=== PATIENT | male | born 1970 | race Caucasian/White ===

== ENCOUNTER 2017-01-27 21:33 | Emergency (ER) | payer SELFPAY ==
[~2017-01-27] VITALS: Ht 180.3 cm; Wt 118.4 kg
[~2017-01-27 21:33] MED LIST: HYDR-3533 PO
[2017-01-27 21:58] VITALS: BP 142/93; PULSE 94; RESP 20; TEMP 98.2; O2SAT 96
[2017-01-28 00:15] VITALS: BP 185/89; PULSE 85; RESP 20; TEMP 97.5; O2SAT 99
[2017-01-28] MEDS ORDERED: RESP: ALBUTEROL 2.5 MG/3 ML NEB (SCH) NEB ONE (00:45)
--- NOTE | 2017-01-28 01:08 | RADHPO ---
EXAM DATE/TIME: 01/28/2017 00:53 [facility] COMPARISON: No previous studies available for comparison. INDICATIONS : Cough and congestion. MEDICAL HISTORY : ASthma. SURGICAL HISTORY : None. ENCOUNTER: Initial ACUITY: 1 month PAIN SCORE: 0/10 LOCATION: chest FINDINGS: PA and lateral views of the chest demonstrate the lungs to be symmetrically aerated without evidence of mass, infiltrate or effusion. The cardiomediastinal contours are unremarkable. Osseous structure s are intact. CONCLUSION: Normal examination. Jude Juarez Jr., MD on January 28, 2017 at 1:06 Board Certified Radiologist. This report was verified electronically.
[2017-01-28 01:13] LABS: AUTOMATED NEUTROPHIL # 4.4 TH/MM3 (1.8-7.7); BASOPHIL % 0.5 % (0.0-2.0); EOSINOPHIL # 0.1 TH/MM3 (0-0.4); EOSINOPHIL % 2.1 % (0.0-4.0); HEMATOCRIT 51.2 % (39.0-51.0); HEMO FLAGS DIFF FINAL; LYMPHOCYTE # 1.5 TH/MM3 (1.0-4.8); MEAN CELL VOLUME 85.6 FL (80.0-100.0); MEAN CORPUSCULAR HEMOGLOBIN 28.4 PG (27.0-34.0); MEAN CORPUSCULAR HGB CONC 33.2 % (32.0-36.0); NEUT % 66.4 % (16.0-70.0); PLATELET COUNT 170 TH/MM3 (150-450); RED BLOOD COUNT 5.98 MIL/MM3 (4.50-5.90); RED CELL DISTRIBUTION WIDTH 12.2 % (11.6-17.2); WHITE BLOOD COUNT 6.6 TH/MM3 (4.0-11.0)
[2017-01-28 01:22] LABS: CHLORIDE 103 MEQ/L (98-107); SODIUM (NA) 138 MEQ/L (136-145)
[2017-01-28 01:25] LABS: ANION GAP 9 MEQ/L (5-15); BICARBONATE 25.8 MEQ/L (21.0-32.0); BLOOD UREA NITROGEN 11 MG/DL (7-18)
[2017-01-28 01:29] LABS: GLOMERULAR FILTRATION RATE 65 ML/MIN (>89)
[2017-01-28 01:30] VITALS: BP 140/92; PULSE 85; RESP 18; O2SAT 99
[2017-01-28 02:30] VITALS: BP 156/81; PULSE 86; RESP 18; O2SAT 97
[2017-01-28] MEDS ORDERED: AMLO5 PO (02:41)
[2017-01-28] MEDS ORDERED: MEDR4PAK PO (02:41)
[2017-01-28] MEDS ORDERED: ALBU6.7H INH (02:41)
[2017-01-28] MEDS ORDERED: methylPREDNISolone SOD SUCC 125 MG/2 ML VIAL IV PUSH ONE (02:45)
--- NOTE | 2017-01-28 02:47 | PD ---
HPI Chief Complaint: Cold / Flu Symptoms Time Seen by Provider: 00:44 Travel History International Travel<30 days: No Contact w/Intl Traveler<30days: No Traveled to known affect area: No History of Present Illness HPI 46-year-old male presents to the emergency department for complaint of cough. Patient has had similar symptoms intermittently over the past year but symptoms haven't increased over the past one month. Patient is concerned that he may have allergies. Patient states that he has high blood pressure but is currently not on blood pressure medication. Patient doesn't really have discomfort in his chest with coughing otherwise no chest pain or discomfort. Remote history of asthma. No recent febrile illness. No other family members with similar symptoms. Son had been ill with recent reactive airways disease. Patient denies tobacco use. Has been taking friend's blood pressure medication. No pleuritic pain no orthopnea and no PND or lower extremity pain or swelling. PFSH Past Medical History Narrative Medical Headaches knee pain leg surgery no tobacco use Hypertension dyslipidemia TIA arthritis asthma; occasional alcohol use; nursing notes reviewed Arthritis: Yes Asthma: Yes Heart Rhythm Problems: No Cancer: No Cardiovascular Problems: Yes (htn takes no meds) High Cholesterol: Yes Chest Pain: Yes Congestive Heart Failure: No Cerebrovascular Accident: Yes (TIA) Diminished Hearing: No Endocrine: No Genitourinary: No Headaches: Yes Hypertension: Yes Immune Disorder: No Implanted Vascular Access Dvce: Yes Musculoskeletal: Yes (chronic right knee pain.) Neurologic: No Psychiatric: No Reproductive: No Respiratory: No Immunizations Current: No Past Surgical History Abdominal Surgery: No Body Medical Devices: steel fariba in left leg. Cardiac Surgery: No Ear Surgery: No Endocrine Surgery: No Eye Surgery: No Genitourinary Surgery: No Gynecologic Surgery: No Oral Surgery: No Thoracic Surgery: No Other Surgery: Yes Social History Alcohol Use: Yes (SOCIAL) Tobacco Use: No Substance Use: No Allergies-Medications (Allergen,Severity, Reaction): Coded Allergies: No Known Allergies (Unverified , 01/28/17) Reported Meds & Prescriptions Reported Meds & Active Scripts Active Norvasc (Amlodipine Besylate) 5 Mg Tab 5 Mg PO DAILY Proventil Hfa 6.7 GM Inh (Albuterol Sulfate) 90 Mcg/Act Aer 2 Puff INH Q4-6H PRN Medrol Dosepak (Methylprednisolone) 4 Mg Dspk 4 Mg PO DIRECTED Per Pharmacist direction Review of Systems Except as stated in HPI: all other systems reviewed are Neg General / Constitutional: No: Fever, Chills HENT: Positive: Congestion Cardiovascular: Positive: Chest Pain or Discomfort, No: Palpitations, Diaphoresis Respiratory: Positive: Cough, Shortness of Breath, Wheezing, No: Orthopnea, Hemoptysis, Stridor, Pleuritic Pain Gastrointestinal: No: Nausea, Vomiting, Abdominal Pain Genitourinary: No: Urgency, Dysuria Musculoskeletal: No: Weakness, Edema Skin: No Rash Neurologic: No: Weakness Psychiatric: No: Anxiety Endocrine: No: Heat Intolerance Hematologic/Lymphatic: No: Easy Bruising Physical Exam Narrative GENERAL: Well-developed well-nourished male in no acute distress no respiratory distress. Intermittently dry nonproductive cough SKIN: Warm and dry. HEAD: Normocephalic. EYES: No scleral icterus. No injection or drainage. NECK: Supple, trachea midline. No JVD or lymphadenopathy. CARDIOVASCULAR: Regular rate and rhythm without murmurs, gallops, or rubs. RESPIRATORY: Breath sounds equal bilaterally. No accessory muscle use. GASTROINTESTINAL: Abdomen soft, non-tender, nondistended. MUSCULOSKELETAL: No cyanosis, or edema. BACK: Nontender without obvious deformity. No CVA tenderness. Data Data Last Documented VS Vital Signs Date Time Temp Pulse Resp B/P Pulse Ox O2 Delivery O2 Flow Rate FiO2 01/28/17 03:26 90 18 166/92 97 01/28/17 02:30 Room Air 01/28/17 00:15 97.5 Orders Chest, Pa & Lat (01/28/17 ) Complete Blood Count With Diff (01/28/17 00:44) Basic Metabolic Panel (Bmp) (01/28/17 00:44) Troponin I (01/28/17 00:44) B-Type Natriuretic Peptide (01/28/17 00:44) Electrocardiogram (01/28/17 ) Albuterol Neb (Albuterol Neb) (01/28/17 00:45) Methylprednisolone So Succ Inj (Solumedr (01/28/17 02:45) Labs Laboratory Tests Test 01/28/17 00:10 White Blood Count 6.6 TH/MM3 Red Blood Count 5.98 MIL/MM3 Hemoglobin 17.0 GM/DL Hematocrit 51.2 % Mean Corpuscular Volume 85.6 FL Mean Corpuscular Hemoglobin 28.4 PG Mean Corpuscular Hemoglobin 33.2 % Concent Red Cell Distribution Width 12.2 % Platelet Count 170 TH/MM3 Mean Platelet Volume 8.6 FL Neutrophils (%) (Auto) 66.4 % Lymphocytes (%) (Auto) 22.0 % Monocytes (%) (Auto) 9.0 % Eosinophils (%) (Auto) 2.1 % Basophils (%) (Auto) 0.5 % Neutrophils # (Auto) 4.4 TH/MM3 Lymphocytes # (Auto) 1.5 TH/MM3 Monocytes # (Auto) 0.6 TH/MM3 Eosinophils # (Auto) 0.1 TH/MM3 Basophils # (Auto) 0.0 TH/MM3 CBC Comment DIFF FINAL Differential Comment Sodium Level 138 MEQ/L Potassium Level 4.0 MEQ/L Chloride Level 103 MEQ/L Carbon Dioxide Level 25.8 MEQ/L Anion Gap 9 MEQ/L Blood Urea Nitrogen 11 MG/DL Creatinine 1.20 MG/DL Estimat Glomerular Filtration 65 ML/MIN Rate Random Glucose 101 MG/DL Calcium Level 8.7 MG/DL Troponin I LESS THAN 0.02 NG/ML B-Type Natriuretic Peptide 5 PG/ML MDM Medical Decision Making Medical Screen Exam Complete: Yes Emergency Medical Condition: Yes Medical Record Reviewed: Yes Interpretation(s) Last Impressions Chest X-Ray 01/28/17 0000 Signed Impressions: Service Date/Time: January 00:53 - CONCLUSION: Normal examination. Jude Juarez Jr., MD CBC & BMP Diagram 01/28/17 00:10 Vital Signs Date Time Temp Pulse Resp B/P Pulse Ox O2 Delivery O2 Flow Rate FiO2 01/28/17 00:15 97.5 85 20 185/89 99 01/27/17 21:58 98.2 94 20 142/93 96 Differential Diagnosis Bronchitis, asthma, pneumonia, reactive airways disease, seasonal/environmental allergies, sinusitis, atypical chest pain, ACS, CHF Narrative Course IV access obtained specimens collected and sent for resulting chest x-ray reveals no lobar infiltrate patient given albuterol updraft within proven of spastic cough symptoms; blood pressure improved; EKG shows sinus rhythm with no acute ST elevation or injury pattern change and cardiac enzymes are normal range. Patient feels clinically improved. Patient is stable for outpatient management and follow-up with primary care provider Diagnosis Primary Impression: Cough Additional Impression: Hypertension Referrals: Primary Care Physician call for appointment Patient Instructions: General Instructions Additional Instructions: Use medications as prescribed May use [id number] Flonase per package directions May use [id number] Claritin per package directions Follow-up with primary care provider Return to the emergency department for any concerns or change in condition Increase fluid hydration Med/Other Pt SpecificInfo: Prescription(s) given Scripts Amlodipine (Norvasc)5 Mg Tab5 Mg PO DAILY #30 TAB Ref 0 Prov:Estelle Cheung MD 01/28/17 Albuterol 6.7 GM Inh (Proventil Hfa 6.7 GM Inh)90 Mcg/Act Aer2 Puff INH Q4-6H PRN (SHORTNESS OF BREATH) #1 INHALER Ref 0 Prov:Estelle Cheung MD 01/28/17 Methylprednisolone Dosepak (Medrol Dosepak)4 Mg Dspk4 Mg PO DIRECTED #1 DSPK Ref 0 Per Pharmacist direction Prov:Estelle Cheung MD 01/28/17 Disposition: 01 DISCHARGE HOME Condition: Stable Estelle Cheung MD Jan 28, 2017 02:47
[2017-01-28 03:26] VITALS: BP 166/92
--- NOTE | 2017-01-28 12:49 | EKG ---
Date Performed: 01/28/2017 Time Performed: 01:34:36 PTAGE: 46 years EKG: Sinus rhythm . Normal ECG PREVIOUS TRACING : 09/04/2015 23.17 Compared to prior tracing no significant change DOCTOR: Jean-Claude Gillette Interpretating Date/Time 01/28/2017 12:48:21
== END 2017-01-28 03:29 | disposition home or self-care (01) ==
LOC: PHED 21:33
DX: R05 Cough (principal); I10 Essential (primary) hypertension; J45.909 Unspecified asthma, uncomplicated
CPT/HCPCS: 71020; 80048; 83880; 84484; 85025; 93005; 94664; 96374; 99284; J2930; J7613

== ENCOUNTER 2018-02-01 12:41 | Emergency (ER) | payer MEDICARE ==
[~2018-02-01] VITALS: Ht 180.3 cm; Wt 115.7 kg
[~2018-02-01 12:41] MED LIST changes: +ALBU6.7H INH; +AMLO5 PO; -HYDR-3533 PO; +MEDR4PAK PO
[2018-02-01 12:42] VITALS: BP 243/123; PULSE 87; RESP 18; O2SAT 97
[2018-02-01] MEDS ORDERED: SODIUM CHLORIDE 0.9% FLUSH 10 ML FLUSH IVF PRN (13:00)
[2018-02-01 13:01] VITALS: BP 144/77; PULSE 80; RESP 16; O2SAT 96
[2018-02-01 13:04] VITALS: RESP 16; O2SAT 96
[2018-02-01 13:15] LABS: AUTOMATED NEUTROPHIL # 4.4 TH/MM3 (1.8-7.7); BASOPHIL # 0.1 TH/MM3 (0-0.2); EOSINOPHIL # 0.3 TH/MM3 (0-0.4); HEMATOCRIT 45.8 % (39.0-51.0); HEMOGLOBIN 15.3 GM/DL (13.0-17.0); LYMPH % 32.6 % (9.0-44.0); LYMPHOCYTE # 2.5 TH/MM3 (1.0-4.8); MEAN CORPUSCULAR HEMOGLOBIN 28.7 PG (27.0-34.0); MEAN CORPUSCULAR HGB CONC 33.4 % (32.0-36.0); MEAN PLATELET VOLUME 8.5 FL (7.0-11.0); MONO % 6.9 % (0.0-8.0); MONOCYTE # 0.5 TH/MM3 (0-0.9); NEUT % 55.5 % (16.0-70.0); PLATELET COUNT 184 TH/MM3 (150-450); RED BLOOD COUNT 5.32 MIL/MM3 (4.50-5.90); RED CELL DISTRIBUTION WIDTH 11.9 % (11.6-17.2); WHITE BLOOD COUNT 7.8 TH/MM3 (4.0-11.0)
[2018-02-01 13:23] LABS: CHLORIDE 105 MEQ/L (98-107); SODIUM (NA) 138 MEQ/L (136-145)
[2018-02-01 13:26] LABS: CALCIUM 8.4 MG/DL (8.5-10.1); PROTHROMBIN TIME - PATIENT 10.2 SEC (9.8-11.6)
[2018-02-01 13:27] LABS: BLOOD UREA NITROGEN 14 MG/DL (7-18); GLUCOSE,RANDOM 118 MG/DL (74-106)
[2018-02-01 13:30] LABS: GLOMERULAR FILTRATION RATE 59 ML/MIN (>89)
[2018-02-01 13:35] LABS: TROPONIN I LESS THAN 0.02 NG/ML (0.02-0.05)
--- NOTE | 2018-02-01 13:38 | PD ---
HPI Chief Complaint: Neuro Symptoms/ Deficits Time Seen by Provider: 12:50 Travel History International Travel<30 days: No Contact w/Intl Traveler<30days: No Traveled to known affect area: No History of Present Illness HPI 47-year-old male complains of expressive aphasia last night which resolved at about the time he went to sleep. He also had numbness in his tongue and perioral numbness as well as bilateral upper extremity paresthesias though worse on the right. He denies symptoms today aside from a pressure-like headache. He reports a history of hypertension including medications for it however does not take any currently due to no follow-up. He reports quite a bit of personal stress lately. He denies drug or alcohol abuse. PFS Past Medical History Arthritis: Yes Asthma: Yes Heart Rhythm Problems: No Cancer: No Cardiovascular Problems: Yes (htn takes no meds) High Cholesterol: Yes Chest Pain: Yes Congestive Heart Failure: No Cerebrovascular Accident: Yes (TIA) Diabetes: No Diminished Hearing: No Endocrine: No Gastrointestinal Disorders: No Genitourinary: No Headaches: Yes Hypertension: Yes Immune Disorder: No Implanted Vascular Access Dvce: Yes Musculoskeletal: Yes (chronic right knee pain.) Neurologic: No Psychiatric: No Reproductive: No Respiratory: No Immunizations Current: No Tetanus Vaccination: < 5 Years ?: Not Past Surgical History Abdominal Surgery: No Body Medical Devices: steel fariba in left leg. Cardiac Surgery: No Ear Surgery: No Endocrine Surgery: No Eye Surgery: No Genitourinary Surgery: No Gynecologic Surgery: No Neurologic Surgery: No Oral Surgery: No Thoracic Surgery: No Other Surgery: Yes (Back surgery) Social History Alcohol Use: No Tobacco Use: No Substance Use: No Allergies-Medications (Allergen,Severity, Reaction): Coded Allergies: No Known Allergies (Unverified Adverse Reaction, Unknown, 02/01/18) Reported Meds & Prescriptions Reported Meds & Active Scripts Active No Active Prescriptions or Reported Medications Review of Systems Except as stated in HPI: all other systems reviewed are Neg General / Constitutional: No: Fever Eyes: No: Blurred Vision Physical Exam Narrative GENERAL: 47-year-old male pleasant well-nourished well-developed Vital Signs Date Time Temp Pulse Resp B/P (MAP) Pulse Ox O2 Delivery O2 Flow Rate FiO2 02/01/18 13:04 16 96 Room Air 02/01/18 13:01 80 16 144/77 (99) 96 Room Air 02/01/18 12:58 16 96 Room Air 02/01/18 12:42 87 18 243/123 (163) 97 SKIN: Warm and dry. HEAD: Atraumatic. Normocephalic. EYES: Pupils equal and round. No scleral icterus. No injection or drainage. ENT: No nasal bleeding or discharge. Mucous membranes pink and moist. NECK: Trachea midline. No JVD. CARDIOVASCULAR: Regular rate and rhythm. RESPIRATORY: No accessory muscle use. Clear to auscultation. Breath sounds equal bilaterally. GASTROINTESTINAL: Abdomen soft, non-tender, nondistended. Hepatic and splenic margins not palpable. MUSCULOSKELETAL: Extremities without clubbing, cyanosis, or edema. No obvious deformities. NEUROLOGICAL: Awake and alert. No obvious cranial nerve deficits. Motor grossly within normal limits. Five out of 5 muscle strength in the arms and legs. Normal speech. PSYCHIATRIC: Appropriate mood and affect; insight and judgment normal. Data Data Last Documented VS Vital Signs Date Time Temp Pulse Resp B/P (MAP) Pulse Ox O2 Delivery O2 Flow Rate FiO2 02/01/18 13:04 16 96 Room Air 02/01/18 13:01 80 Orders Orders Electrocardiogram (02/01/18 13:00) Prothrombin Time / Inr (Pt) (02/01/18 13:00) Act Partial Throm Time (Ptt) (02/01/18 13:00) Complete Blood Count With Diff (02/01/18 13:00) Basic Metabolic Panel (Bmp) (02/01/18 13:00) Drug Screen, Random Urine (02/01/18 13:00) Troponin I (02/01/18 13:00) Ct Brain W/O Iv Contrast(Rout) (02/01/18 13:00) Ecg Monitoring (02/01/18 13:00) Iv Access Insert/Monitor (02/01/18 13:00) Oximetry (02/01/18 13:00) Sodium Chloride 0.9% Flush (Ns Flush) (02/01/18 13:00) Labs Laboratory Tests Test 02/01/18 13:00 White Blood Count 7.8 TH/MM3 Red Blood Count 5.32 MIL/MM3 Hemoglobin 15.3 GM/DL Hematocrit 45.8 % Mean Corpuscular Volume 86.0 FL Mean Corpuscular Hemoglobin 28.7 PG Mean Corpuscular Hemoglobin Concent 33.4 % Red Cell Distribution Width 11.9 % Platelet Count 184 TH/MM3 Mean Platelet Volume 8.5 FL Neutrophils (%) (Auto) 55.5 % Lymphocytes (%) (Auto) 32.6 % Monocytes (%) (Auto) 6.9 % Eosinophils (%) (Auto) 4.0 % Basophils (%) (Auto) 1.0 % Neutrophils # (Auto) 4.4 TH/MM3 Lymphocytes # (Auto) 2.5 TH/MM3 Monocytes # (Auto) 0.5 TH/MM3 Eosinophils # (Auto) 0.3 TH/MM3 Basophils # (Auto) 0.1 TH/MM3 CBC Comment DIFF FINAL Differential Comment Prothrombin Time 10.2 SEC Prothromb Time International Ratio 1.0 RATIO Activated Partial Thromboplast Time 24.7 SEC Blood Urea Nitrogen 14 MG/DL Creatinine 1.30 MG/DL Random Glucose 118 MG/DL Calcium Level 8.4 MG/DL Sodium Level 138 MEQ/L Potassium Level 3.8 MEQ/L Chloride Level 105 MEQ/L Carbon Dioxide Level 23.0 MEQ/L Anion Gap 10 MEQ/L Estimat Glomerular Filtration Rate 59 ML/MIN Troponin I LESS THAN 0.02 NG/ML MDM Medical Decision Making Medical Screen Exam Complete: Yes Emergency Medical Condition: Yes Medical Record Reviewed: Yes Differential Diagnosis stroke, TIA, hypertension Narrative Course EKG: sinus, rate 80, normal axis/intervals, q waves in v1/v2 CBC & BMP Diagram 02/01/18 13:00 Calcium Level 8.[address]: normal blood pressure has normalized to about 144/77. The presentation is concerning for a TIA. The patient refuses to stay noting that his son is the picked up from school. There is no other option for the patient and unfortunately discharging him in this scenario is considered and appropriate. The patient agrees to sign AGAINST MEDICAL ADVICE paperwork and understands that in doing so assumes personal responsibility for untoward outcomes not limited to permanent disability and . He understands he can return any time. He has iterated intention to follow up with primary care provider expeditiously. Diagnosis Primary Impression: Left against medical advice Referrals: Gregor Abbott MD call for appointment oLc Jj MD call for appointment Med/Other Pt SpecificInfo: Prescription(s) given Scripts Amlodipine (Amlodipine) 5 Mg Tab 5 MG PO DAILY for Blood Pressure Management, #30 TAB 1 Refill Prov: Alli Luu MD 02/01/18 Disposition: LEFT WITHOUT BEING SEEN Condition: Stable Alli Luu MD Feb 01, 2018 13:38
--- NOTE | 2018-02-01 13:48 | RADRPT ---
EXAM DATE/TIME: 02/01/2018 13:32 [facility] COMPARISON: MRI BRAIN W/O CONTRAST, May 08, 2015, 15:18. CT BRAIN W/O CONTRAST, September 04, 2015, 23:39. INDICATIONS : Headache with difficulty speaking last night, now resolved. RADIATION DOSE: 56.65 CTDIvol (mGy) MEDICAL HISTORY : Cerebrovascular disease. Hypertension. SURGICAL HISTORY : Orthopedic surgery. ENCOUNTER: Initial ACUITY: 2 days PAIN SCALE: 2/10 LOCATION: cranial TECHNIQUE: Multiple contiguous axial images were obtained of the head. Using automated exposure control and adj ustment of the mA and/or kV according to patient size, radiation dose was kept as low as reasonably a chievable to obtain optimal diagnostic quality images. DICOM format image data is available electro nically for review and comparison. FINDINGS: CEREBRUM: The ventricles are normal. No evidence of midline shift, mass lesion, hemorrhage or acute infarction . No extra-axial fluid collections are seen. Choroid plexus has a stable appearance. POSTERIOR FOSSA: The cerebellum and brainstem are intact. The 4th ventricle is midline. The cerebellopontine angle i s unremarkable. EXTRACRANIAL: Visualized sinuses are clear. SKULL: The calvaria is intact. No evidence of skull fracture. CONCLUSION: No acute intracranial abnormality is identified. Pancho Suarez MD on February 01, 2018 at 13:39 Board Certified Radiologist. This report was verified electronically.
[2018-02-01] MEDS ORDERED: AMLO5TAB2 PO (13:59)
[2018-02-01 14:06] VITALS: BP 157/99
--- NOTE | 2018-02-02 21:39 | EKG ---
Date Performed: 02/01/2018 Time Performed: 13:06:44 PTAGE: 47 years EKG: Sinus rhythm SEPTAL MYOCARDIAL INFARCTION ABNORMAL ECG PREVIOUS TRACING : 01/28/2017 01.34 Since the previous tracing, no significant change noted DOCTOR: Jean-Claude Gillette Interpretating Date/Time 02/02/2018 21:37:32
== END 2018-02-01 15:34 | disposition left against medical advice (07) ==
LOC: PHED 12:41
DX: R51 Headache (principal); R94.31 Abnormal electrocardiogram [ECG] [EKG]; R20.0 Anesthesia of skin; R20.2 Paresthesia of skin; I10 Essential (primary) hypertension; R47.01 Aphasia; E78.00 Pure hypercholesterolemia, unspecified; J45.909 Unspecified asthma, uncomplicated; Z53.21 Procedure and treatment not carried out due to patient leaving prior to being seen by health care provider
CPT/HCPCS: 70450; 80048; 84484; 85025; 85610; 85730; 93005